=== PATIENT | male | born 1935 | race Caucasian/White ===

== ENCOUNTER → 2017-02-15 | Outpatient (CLI) | payer MEDICARE ==
[~2017-02-15] MED LIST: ALLO300T PO; ATOR40TA78 PO; BUPR150T73 PO; FINA5TAB4 PO; LISI1TAB3 PO; MECL-85 PO; METO25TA35 PO; POTA10TA5 PO; RANI150T4 PO; WARF2TAB7 PO; WARF4TAB7 PO
== END | disposition home or self-care (01) ==
LOC: CVU 11:32
PROVIDERS: ATTEND Registered Nurse
DX: G45.8 Other transient cerebral ischemic attacks and related syndromes (principal); R41.3 Other amnesia
CPT/HCPCS: 93880; 95819

== ENCOUNTER 2017-04-03 16:07 | Emergency (ER) | payer MEDICARE ==
[~2017-04-03] VITALS: Ht 172.7 cm; Wt 76.3 kg
[2017-04-03 16:11] VITALS: BP 174/82
[2017-04-03] MEDS ORDERED: PROPARACAINE OPHTH 0.5%, 15ML ONE (16:43)
[2017-04-03] MEDS ORDERED: FLUORESCEIN OPHTHALMIC 1 MG STRIP ONE (16:43)
== END 2017-04-03 17:14 | disposition home or self-care (01) ==
LOC: ED 17:08
DX: B30.9 Viral conjunctivitis, unspecified (principal); I10 Essential (primary) hypertension; G45.9 Transient cerebral ischemic attack, unspecified; C61 Malignant neoplasm of prostate; Z95.1 Presence of aortocoronary bypass graft; Z88.2 Allergy status to sulfonamides
CPT/HCPCS: 99283

== ENCOUNTER 2018-01-31 13:58 | Emergency (ER) | payer MEDICARE ==
[~2018-01-31] VITALS: Ht 175.3 cm; Wt 77.7 kg
[2018-01-31 14:06] VITALS: BP 146/84
[2018-01-31 14:52] LABS: BASOPHILS # (AUTO) 0.02 x10^3/uL (0-0.1); BASOPHILS % (AUTO) 0 % (0-1); EOSINOPHILS # (AUTO) 0.13 x10^3/uL (0-0.4); EOSINOPHILS % (AUTO) 2 % (1-7); LYMPHOCYTES # (AUTO) 1.43 x10^3/uL (1-3.4); LYMPHOCYTES % (AUTO) 25 % (22-44); MD NO; MEAN CORPUSCULAR HEMOGLOBIN 28.4 pg (27.5-34.5); MEAN CORPUSCULAR HGB CONC 33.5 g/dL (33.2-36.2); MEAN CORPUSCULAR VOLUME 84.8 fL (81-97); MEAN PLATELET VOLUME 7.8 fL (7.4-10.4); MONOCYTES # (AUTO) 0.45 x10^3/uL (0.2-0.8); MONOCYTES % (AUTO) 8 % (2-9); NEUTROPHILS # (AUTO) 3.73 x10^3/uL (1.8-6.8); NEUTROPHILS % (AUTO) 65 % (42-75); PLATELET COUNT 172 x10^3/uL (130-400); RED BLOOD COUNT 5.32 x10^6/uL (4.38-5.82); RED CELL DISTRIBUTION WIDTH 15.5 % (9.4-14.8)
[2018-01-31 15:00] LABS: ALBUMIN 4.1 g/dL (3.4-5.0); ANION GAP 5 mmol/L (5-15); CALCIUM 9.4 mg/dL (8.5-10.1); CHLORIDE 107 mmol/L (98-107)
== END 2018-01-31 16:03 | disposition home or self-care (01) ==
LOC: ED 15:57
DX: L03.115 Cellulitis of right lower limb (principal); N28.9 Disorder of kidney and ureter, unspecified; I10 Essential (primary) hypertension; I48.91 Unspecified atrial fibrillation; I25.2 Old myocardial infarction; Z95.1 Presence of aortocoronary bypass graft; Z86.73 Personal history of transient ischemic attack (TIA), and cerebral infarction without residual deficits
CPT/HCPCS: 36415; 80048; 82040; 83605; 85025; 99285

== ENCOUNTER → 2018-12-13 | Outpatient (CLI) | payer MEDICARE ==
[~2018-12-13] MED LIST changes: +ACET325C5 PO; +AMOX1TAB64 PO; +L.AC1CAP6 PO; +OMNIPAQUE 350 MG/ML, 150 ML BOTTLE ONE; +RIVA15TA PO; +TRAZ150T62 PO; -WARF2TAB7 PO; +WARF2TAB99 PO; +WARF4TAB65 PO; -WARF4TAB7 PO
== END | disposition home or self-care (01) ==
LOC: CFH 14:38
PROVIDERS: ATTEND Urology
DX: N28.1 Cyst of kidney, acquired (principal); I25.10 Atherosclerotic heart disease of native coronary artery without angina pectoris; K40.90 Unilateral inguinal hernia, without obstruction or gangrene, not specified as recurrent; K44.9 Diaphragmatic hernia without obstruction or gangrene; N28.89 Other specified disorders of kidney and ureter
CPT/HCPCS: 74178; Q9967

== ENCOUNTER 2019-05-15 11:34 | Observation (INO) | payer MEDICARE ==
[~2019-05-15] VITALS: Ht 175.3 cm; Wt 78.0 kg
[~2019-05-15 11:34] MED LIST changes: -OMNIPAQUE 350 MG/ML, 150 ML BOTTLE ONE
[2019-05-15] MEDS ORDERED: CEFAZOLIN PMX 1GM/50ML 50 ML IVPB ONE (12:00)
[2019-05-15 12:17] VITALS: BP 156/77
[2019-05-15] MEDS ORDERED: OMEG1CAP24 PO (12:41)
[2019-05-15] MEDS ORDERED: ACET-458 PO (12:41)
[2019-05-15] MEDS ORDERED: UBID100C41 PO (12:41)
[2019-05-15] MEDS ORDERED: TAMS-11 PO (12:41)
[2019-05-15] MEDS ORDERED: CHOL400C11 PO (12:41)
[2019-05-15] MEDS ORDERED: NIAC500T9 PO (12:41)
[2019-05-15] MEDS ORDERED: ACET-1757 PO (12:41)
[2019-05-15] MEDS ORDERED: CYAN100014 PO (12:41)
[2019-05-15] MEDS ORDERED: POTA99TA2 PO (12:41)
[2019-05-15] MEDS ORDERED: ASCO10004 PO (12:41)
[2019-05-15] MEDS ORDERED: CALC1WAF PO (12:41)
[2019-05-15] MEDS ORDERED: TRAZ150T62 PO (12:41)
[2019-05-15] MEDS ORDERED: TUMERIC PO (12:41)
[2019-05-15] MEDS ORDERED: VITA100022 PO (12:41)
[2019-05-15] MEDS ORDERED: MIDAZOLAM 1 MG/ML, 2ML ONE (13:06)
[2019-05-15] MEDS ORDERED: CEFAZOLIN PMX 1GM/50ML 50 ML ONE (13:06)
[2019-05-15] MEDS ORDERED: LIDOCAINE 1%, 20ML ONE (13:06)
[2019-05-15] MEDS ORDERED: FENTANYL PF 100 MCG/2ML ONE (13:06)
[2019-05-15] MEDS ORDERED: CEFAZOLIN 1,000 MG ONE (13:06)
[2019-05-15 14:30] VITALS: BP 154/78
[2019-05-15] MEDS ORDERED: HOLD MEDICATION MC PRN (14:30)
[2019-05-15] MEDS ORDERED: HYDROcodone/APAP 5/325 TABLET PO PRN (14:30)
[2019-05-15] MEDS ORDERED: ACETAMINOPHEN 325 MG TABLET PO PRN (14:30)
[2019-05-15] MEDS: SODIUM CHLORIDE 0.9% 1,000 ML IV SCH ×2 (15:10→21:45)
[2019-05-15] MEDS ORDERED: AMLODIPINE 5 MG TABLET PO PRN (20:00)
[2019-05-15 20:07] VITALS: BP 163/77
[2019-05-15 21:39] VITALS: BP 148/74
[2019-05-15] MEDS: AMLODIPINE 10 MG TAB PO SCH (21:44)
[2019-05-15] MEDS: SODIUM CHLORIDE FLUSH 10ML SYR IVF SCH (21:45)
[2019-05-15] MEDS: CEFAZOLIN PMX 1GM/50ML 50 ML IVPB SCH (21:45)
[2019-05-16 01:16] VITALS: BP 158/73
[2019-05-16] MEDS: SODIUM CHLORIDE 0.9% 1,000 ML IV SCH (05:41)
[2019-05-16] MEDS: CEFAZOLIN PMX 1GM/50ML 50 ML IVPB SCH (05:41)
[2019-05-16 06:41] VITALS: BP 152/80
[2019-05-16] MEDS: AMLODIPINE 10 MG TAB PO SCH (09:09)
[2019-05-16] MEDS: SODIUM CHLORIDE FLUSH 10ML SYR IVF SCH (09:14)
[2019-05-16] MEDS ORDERED: ACET325T14 PO (09:48)
== END 2019-05-16 10:55 | disposition home or self-care (01) ==
LOC: CACL 11:34 → 5SO 14:23 → DCLOUNGE 05-16 10:47
PROVIDERS: ADMIT Internal Medicine Cardiovascular Disease; ATTEND Internal Medicine Cardiovascular Disease
DX: I48.2 Chronic atrial fibrillation (principal); I49.5 Sick sinus syndrome; M10.9 Gout, unspecified; N18.9 Chronic kidney disease, unspecified; I12.9 Hypertensive chronic kidney disease with stage 1 through stage 4 chronic kidney disease, or unspecified chronic kidney disease; G45.8 Other transient cerebral ischemic attacks and related syndromes; E78.2 Mixed hyperlipidemia; Z79.899 Other long term (current) drug therapy
CPT/HCPCS: 33207; 71045; 96365; 96366; 99156; 99157; C1779; C1786; C1892; G0378; J0690; J2250; J3010; J3490; J7030